=== PATIENT | female | born 1965 | race Caucasian/White ===

== ENCOUNTER 2016-08-02 08:53 | Emergency (ER) | payer OTHER ==
[~2016-08-02 08:53] MED LIST: CYCL10TA9 PO; LEVO50TA6 PO
[2016-08-02 09:04] VITALS: BP 164/97; PULSE 110; RESP 18; O2SAT 98
--- NOTE | 2016-08-02 09:06 | ED.REPORT ---
HPI-General Illness Date of Service Aug 02, 2016 ED Provider: Gisselle Acosta MD 51 year old female with a hx of hypothyroid presents to the ED via EMS due to palpitations and rapid heart rate at 0700 this morning. Her symptoms lasted for approximately 1 hour before resolving. During this time she had mild chest tightness. En route the patient was noted to be in Afib. Her ECG and rhythm strips from medics were reviewed and were in Afib with a rate of 125. Pt reports she has a hx of heart palpitations that typically resolve after a few minutes. Pt was concerned because they lasted so long today. In the last week pt had a minor URI. She has taken no medications. PCP: Kalani Bonner Nursing Notes Stated Complaint: RAPID HEARTRATE Chief Complaint: Dysrhythmia/Cardiac Nursing Notes Reviewed: Yes Allergies: Coded Allergies: Sulfa (Sulfonamide Antibiotics) (Verified Allergy, Severe, hives, 09/22/14) Scheduled Levothyroxine (Levothyroxine) 50 Mcg Tablet 50 MCG PO DAILY Scheduled PRN Cyclobenzaprine (Cyclobenzaprine) 10 Mg Tablet 10 MG PO HS PRN PRN For Spasm General Time Seen by MD: 09:03 Chief Complaint Other (Afib) Hx Obtained From: Patient, EMS Arrived By: Ambulance Sudden in Onset?: Yes Onset Occurred: 1 - 4 hours ago Symptom Duration: 1 - 4 hours Location: : Chest Quality: Painful Severity: Current: No pain currently Severity: Maximum: Mild Associated with: Reports: Chest pain Pertinent Negative: Relieved by nothing Similar Sx Previous: Yes Past Medical History Past Medical History Sleep apnea- Resolved with weight loss September 2008 heart cath with normal coronary arteries and normal left ventricular function Reports: Thyroid disease Past Surgical History Gastric bypass Reports: Appendectomy, Smoking History Former Smoker Social History Alcohol Use: "Social" Drug Use: Denies drug use Review of Systems Full Review of Systems Constitutional: Denies: Fever Respiratory: Denies: Non-productive cough, Shortness of breath Cardiovascular: Reports: Chest pain, Palpitations GI: Denies: Abdominal pain, Diarrhea, Vomiting Skin: Denies Diaphoresis, Denies Rash Neurologic: Denies: Change LOC, Headache Complete sys rev & neg: except as marked. Physical Exam Vital Signs Vital Signs Date Time Temp Pulse Resp B/P Pulse Ox O2 Delivery O2 Flow Rate FiO2 08/02/16 10:07 110 18 164/97 98 Room Air 08/02/16 09:04 110 18 164/97 98 Room Air Initial VS: Reviewed General/Constitutional: Well-developed, Well-nourished Head / Eyes: Atraumatic, Normocephalic, PERRL ENT: Conjunctiva normal, No scleral icterus Neck: Full range of motion Abdomen / GI: Soft, Non-tender, No distention Skin: Warm, Dry, No cyanosis Neurologic: Alert, Oriented, Nonfocal Psychiatric: Mood/affect normal, Behavior normal, Normal thought content Respiratory / Chest: Breath sounds NL, Breath sounds = bilat, No respiratory distress, No rales, No rhonchi, No wheezing Cardiovascular: Regular rhythm, Heart sounds NL, No murmurs, Peripheral circulation NL Heart Rate / Rhythm: Positive: Tachycardia 1+ edema on R, slightly more swollen than left. Lower Extremity / Pelvis / MS: Full range of motion, Neurologic intact, Vascular intact Varicose veins Interpretation & Diagnostics Lab Results Interpretation Result Diagram: 08/02/16 0904 08/02/16 0904 Test 08/02/16 09:04 White Blood Count 10.7th/mm3 (3.8-10.1) Red Blood Count 5.13mil/mm3 (3.90-5.20) Hemoglobin 15.1g/dL (12.0-15.6) Hematocrit 44.7% (35.0-46.0) Mean Corpuscular Volume 87.1fL (81-100) Mean Corpuscular Hemoglobin 29.4pg (27.0-35.0) Mean Corpuscular Hemoglobin Concent 33.8% (32.0-37.0) Red Cell Distribution Width 14.7% (12.3-15.4) Platelet Count 344bil/L (150-400) Neutrophils (%) (Auto) 77.6% (40-74) Lymphocytes (%) (Auto) 16.3% (14-46) Monocytes (%) (Auto) 4.5% (4-12) Eosinophils (%) (Auto) 0.6% (0-5) Basophils (%) (Auto) 0.6% (0-3) Sodium Level 145mEq/L (134-144) Potassium Level 3.5mEq/L (3.5-5.2) Chloride Level 102mEq/L (97-108) Carbon Dioxide Level 26mmol/L (18-29) Blood Urea Nitrogen 6mg/dL (6-24) Creatinine 0.48mg/dL (0.57-1.00) Estimat Glomerular Filtration Rate 194mL/min (>59) Glucose Level 115mg/dL (60-99) Calcium Level 9.3mg/dL (8.5-10.1) Magnesium Level 2.1mg/dL (1.6-2.6) Total Bilirubin 0.4mg/dL (0.0-1.2) Aspartate Amino Transf (AST/SGOT) 31U/L (0-50) Alanine Aminotransferase (ALT/SGPT) 22U/L (0-32) Alkaline Phosphatase 86U/L (25-150) Troponin T 0.010ug/L (0.0-0.011) Total Protein 8.7g/dL (6.4-8.4) Albumin 4.6g/dL (3.4-5.0) Thyroid Stimulating Hormone (TSH) 1.410uIU/mL (0.450-4.500) General Lab Results Interp 1: Labs reviewed ECG Interpretation ECG Interpretation: Sinus rhythm Slow R wave transition anteriorly Time: 09:07 Interpreted by: ED physician Normal ECG Interpretation: No acute ischemic changes Abnormal Rate: 110 Rhythm / Conduction: Tachycardia X-Ray Chest Interpretation Chest Xray Interpretation: IMPRESSION: No acute cardiopulmonary abnormality Dictated by: Yaya Azevedo M.D. on 08/02/2016 at 10:00 View: Portable, 1 view Interpretation / Wet Read by: Interpret - Radiologist Re-Eval/Medical Decision Time of Eval: 10:30 Re-Evaluation/Progress Note: Pt has remained in NSR with a rate of 88 while in the ED. Pt has no symptoms at this time. Discussed plan for discharge and follow up. All questions addressed. Counseled Regarding: Diagnosis, Lab results, Need for follow-up, When/why to return to ED Discharge & Departure Primary Impression: Paroxysmal atrial fibrillation Disposition: Home Discharge Condition All VS Reviewed: Yes Condition: Improved Patient Instructions: Atrial Fibrillation (ED) Additional Instructions: Your ECG today by the medics showed atrial fibrillation. By the time you got to the ER, you had already converted to sinus rythm. Your ER work up does not suggest any other issues, no heart attack. You did have a heart catheterization in 2008 that showed compltely normal heart arteries. Call your gastric bypass doctor to ask if you can take an enteric coated full dose 324mg aspirin daily to help decrease your risk of heart attack and stroke. A compromise would be 81mg. Call today to schedule a follow up with Kalani Bonner. Return to the ER if your symptoms last longer than an hour or for chest pain and shortness of breath. Thank you for letting us help today. Referrals: Kalani Bonner PA-C (PCP) Scribe Attestation Portions of this note were transcribed by Richelle Mahoney. I, (Gisselle Acosta MD ) personally performed the history, physical exam and medical decision-making; I reviewed and confirmed the accuracy of the information in the transcribed note. Signed by: Richelle Mahoney. 08/02/2016, 1037 copies to: Kalani Bonner PA-C, Shawna L MD Aug 02, 2016 09:06 Richelle Mahoney Aug 02, 2016 09:24
[2016-08-02 09:07] LABS: BASOPHILS % (AUTO) 0.6 % (0-3); EOSINOPHILS % (AUTO) 0.6 % (0-5); MONOCYTES % (AUTO) 4.5 % (4-12); Mean Corpuscular Hemoglobin 29.4 pg (27.0-35.0); Mean Corpuscular Volume 87.1 fL (81-100); NEUTROPHILS % (AUTO) 77.6 % (40-74); Platelet Count 344 bil/L (150-400)
[2016-08-02 09:29] LABS: TROPONIN T 0.01 ug/L (0.0-0.011)
[2016-08-02 09:50] LABS: Magnesium 2.1 mg/dL (1.6-2.6)
--- NOTE | 2016-08-02 10:02 | DRSVH ---
PROCEDURE: X-RAY CHEST ONE VIEW, PORTABLE ([id number]) INDICATIONS: new a.fib TECHNIQUE: One view of the chest was acquired. COMPARISON: 08/16/2012 FINDINGS: Surgical changes and devices: None. Lungs and pleura: No pleural effusions or pneumothorax. Lungs are clear. Mediastinum: Mediastinal contours appear normal. Eventration right hemidiaphragm. Heart size is norm al. Bones and chest wall: No suspicious bony lesions. Thoracic spondylosis. Overlying soft tissues appea r unremarkable. IMPRESSION: No acute cardiopulmonary abnormality Dictated by: Yaya Azevedo M.D. on 08/02/2016 at 10:00 Approved by: Yaya Azevedo M.D. on 08/02/2016 at 10:00
[2016-08-02 10:07] VITALS: BP 164/97; PULSE 110; RESP 18; O2SAT 98
[2016-08-02 10:52] VITALS: BP 133/86; PULSE 78; RESP 12
[2016-08-02 10:54] VITALS: BP 164/97; PULSE 110; RESP 18; O2SAT 98
== END 2016-08-02 10:54 | disposition home or self-care (01) ==
LOC: EDBD 08:53 → EDUNIT# 08:53 → SED 08:53
DX: I48.0 Paroxysmal atrial fibrillation (principal); R07.89 Other chest pain; E03.9 Hypothyroidism, unspecified; Z87.891 Personal history of nicotine dependence; Z88.1 Allergy status to other antibiotic agents

== ENCOUNTER 2017-01-08 16:55 | Emergency (ER) | payer OTHER ==
[~2017-01-08] VITALS: Ht 165.1 cm; Wt 127.0 kg
[2017-01-08 17:02] VITALS: BP 159/99; PULSE 67; RESP 20; O2SAT 96
[2017-01-08 17:34] VITALS: BP 169/65; PULSE 76; RESP 16; O2SAT 100
[2017-01-08 17:43] LABS: BASOPHILS % (AUTO) 1.1 % (0-3); MONOCYTES % (AUTO) 7.6 % (4-12); Mean Corpuscular Hemoglobin 29.8 pg (27.0-35.0); Mean Corpuscular Volume 89.6 fL (81-100); NEUTROPHILS % (AUTO) 52.8 % (40-74); Platelet Count 345 bil/L (150-400)
--- NOTE | 2017-01-08 18:10 | ED.REPORT ---
HPI-Chest Pain 40 and Over Date of Service Jan 08, 2017 ED Provider: Peter Leon MD The patient is a 51 year old female presenting today from via EMS where she was complaining of burning left side and left arm pain that began at 1330 today rated at 2/10 in intensity. She was given 324mg aspirin prior to arrival. Patient was most recently seen and evaluated at [facility] on 08/02/16 complaining of palpitations at which time she had a workup that included an unremarkable ECG, x -ray, and negative troponin. En route, medics thought she had a-fib but she was discharged in stable condition. Her most recent catheterization was in 2008 and was unremarkable. Per the patient, she experienced chest pressure and tightness yesterday and the day before when she was walking. Associated symptoms include pain in right arm radiating into jaw and SOB. She initially thought it was allergies. Last night she was up until 0230 and it was not like the a-fib she was used to. Besides the past 2 days, she has never experienced chest pain. Her kelp cutter is Dr. Bautista in [place] at [facility]. She had a recent heart ultrasound which was unremarkable. A stress test was done 2 weeks ago, she has not received the results from this yet. She denies any other symptoms including hx of heart disease, DM, and blood clots. She takes 224 mg aspirin a day. Nursing Notes Stated Complaint: LEFT ARM PAIN Chief Complaint: Chest Pain Nursing Notes Reviewed: Yes Allergies: Coded Allergies: Sulfa (Sulfonamide Antibiotics) (Verified Allergy, Severe, hives, 09/22/14) Scheduled Levothyroxine (Levothyroxine) 50 Mcg Tablet 50 MCG PO DAILY Metoprolol Tartrate (Metoprolol Tartrate) 25 Mg Tablet 12.5 MG PO BID Scheduled PRN Cyclobenzaprine (Cyclobenzaprine) 10 Mg Tablet 10 MG PO HS PRN PRN For Spasm General Time Seen by MD: 18:07 Chief Complaint Chest pain Hx Obtained From: Patient Arrived By: Ambulance Sudden in Onset?: Yes Onset Occurred: 5 - 8 hours ago Symptom Duration: Since onset Severity: Current: Mild Recent Healthcare: No recent doctor visit, No recent hospitalization Similar Sx Previous: No Past Medical History Past Medical History Sleep apnea- Resolved with weight loss September 2008 heart cath with normal coronary arteries and normal left ventricular function Reports: Thyroid disease Past Surgical History Gastric bypass Reports: Appendectomy, Smoking History Former Smoker Social History Alcohol Use: "Social" Drug Use: Denies drug use Review of Systems Constitutional: Denies: Chills, Fever Respiratory: Reports: Shortness of breath Cardiovascular: Reports: Chest pain, Palpitations GI: Denies: Abdominal pain, Diarrhea, Nausea, Vomiting Musculoskeletal: Reports: Extremity pain (right arm pain) Neurologic: Denies: Change LOC Complete sys rev & neg: except as marked. Physical Exam Initial Vital Signs Vital Signs (First) Date Time Temp Pulse Resp B/P Pulse Ox O2 Delivery O2 Flow Rate FiO2 01/08/17 17:02 36.5 67 20 159/99 96 Room Air Initial VS: Reviewed General/Constitutional: Awake, Alert, No acute distress, Cooperative, Not toxic appearing Respiratory / Chest: Atraumatic, Breath sounds NL, Breath sounds = bilat, No respiratory distress Cardiovascular: Heart rate NL, Regular rhythm, Heart sounds NL, No gallop, No murmurs, No rubs Abdomen: Atraumatic, Soft, Non-tender Lower Extremity / Pelvis / MS: Atraumatic, Inspection NL, No deformity Skin: Atraumatic, Color NL, No rash, Warm, Dry Neurologic: Oriented X3, Speech NL, No motor deficits Head / Eyes: Atraumatic, Normocephalic, PERRL, EOMI Upper Extremity / MS: Atraumatic, Inspection NL, No deformity Interpretation & Diagnostics Lab Results Interpretation Result Diagram: 01/08/17 1710 01/08/17 1751 Test 01/08/17 17:10 01/08/17 17:51 White Blood Count 7.5th/mm3 (3.8-10.1) Red Blood Count 4.80mil/mm3 (3.90-5.20) Hemoglobin 14.3g/dL (12.0-15.6) Hematocrit 43.0% (35.0-46.0) Mean Corpuscular Volume 89.6fL (81-100) Mean Corpuscular Hemoglobin 29.8pg (27.0-35.0) Mean Corpuscular Hemoglobin Concent 33.3% (32.0-37.0) Red Cell Distribution Width 14.7% (12.3-15.4) Platelet Count 345bil/L (150-400) Neutrophils (%) (Auto) 52.8% (40-74) Lymphocytes (%) (Auto) 34.2% (14-46) Monocytes (%) (Auto) 7.6% (4-12) Eosinophils (%) (Auto) 4.0% (0-5) Basophils (%) (Auto) 1.1% (0-3) Hold Purple Top Tube Received (Received) Hold Blue Top Tube Received (Received) Hold Red Top Tube Received (Received) Hold [place] Top Tube Received (Received) Sodium Level 140mEq/L (134-144) Potassium Level 3.6mEq/L (3.5-5.2) Chloride Level 101mEq/L (97-108) Carbon Dioxide Level 23mmol/L (18-29) Blood Urea Nitrogen 14mg/dL (6-24) Creatinine 0.47mg/dL (0.57-1.00) Estimat Glomerular Filtration Rate 199mL/min (>59) Glucose Level 93mg/dL (60-99) Calcium Level 9.5mg/dL (8.5-10.1) Magnesium Level 2.2mg/dL (1.6-2.6) Total Bilirubin 0.4mg/dL (0.0-1.2) Aspartate Amino Transf (AST/SGOT) 26U/L (0-50) Alanine Aminotransferase (ALT/SGPT) 21U/L (0-32) Alkaline Phosphatase 81U/L (25-150) Troponin T < 0.010ug/L (0.0-0.011) Total Protein 7.5g/dL (6.4-8.4) Albumin 4.0g/dL (3.4-5.0) Hold [place] Top Tube Received (Received) ECG Interpretation ECG Interpretation: left axis deviation normal intervals no ST segment when compared to 08/02/16 she is no longer tachy no significant changes present Time: 09:07 Interpreted by: ED physician Normal ECG Interpretation: No acute ischemic changes, Normal axis, Normal intervals X-Ray Chest Interpretation Chest Xray Interpretation: IMPRESSION: No acute cardiopulmonary disease. Dictated by: Nate Self M.D. on 01/08/2017 at 19:05 Approved by: Nate Self M.D. on 01/08/2017 at 19:05 View: Portable Interpretation / Wet Read by: Interpret - Radiologist Re-Eval/Medical Decision Med Decision/Clinical Course The patient is a 51 year old female presenting today from via EMS where she was complaining of burning left side and left arm pain that began at 1330 today rated at 2/10 in intensity. She was given 324mg aspirin prior to arrival. Patient was most recently seen and evaluated at [facility] on 08/02/16 complaining of palpitations at which time she had a workup that included an unremarkable ECG, x -ray, and negative troponin. En route, medics thought she had a-fib but she was discharged in stable condition. Her most recent catheterization was in 2008 and was unremarkable. Per the patient, she experienced chest pressure and tightness yesterday and the day before when she was walking. Associated symptoms include pain in right arm radiating into jaw and SOB. She initially thought it was allergies. Last night she was up until 0230 and it was not like the a-fib she was used to. Besides the past 2 days, she has never experienced chest pain. Her kelp cutter is Dr. Bautista in [place] at [facility]. She had a recent heart ultrasound which was unremarkable. A stress test was done 2 weeks ago, she has not received the results from this yet. She denies any other symptoms including hx of heart disease, DM, and blood clots. She takes 324 mg aspirin a day. Emergency department the patient is afebrile and in no apparent distress. She is chest pain-free. EKG was obtained and interpreted by myself as documented above. CBC unremarkable CMP unremarkable Troponin negative CHEST X-RAY IMPRESSION: No acute cardiopulmonary disease. I was able to contact the patient's cardiology group in [place]. I confirmed that her recent stress test was essentially unremarkable except for hypertensive response to exercise. Given her recent extensive workup including stress test as well as unremarkable echocardiogram it is felt that the patient is safe for discharge. Initial screening EKG and troponin today are negative and she is chest pain-free. I would expect that the setting of acute coronary syndrome that the patient would likely have developed elevated troponin at this point. The patient's kelp cutter will make sure that she is seen in the next couple of days. They have recommended that we start metoprolol 12.5 mg twice a day the patient was provided with a prescription. Patient states that she feels reassured and is comfortable with being discharged. Prior to discharge follow-up and return precautions were reviewed in detail with the patient who verbalized understanding and agreement with the plan. The patient was discharged in stable condition. Time of Eval: 19:00 Re-Evaluation/Progress Note: Pt checked. Informed of negative lab results. Plan to try to track down stress test. Time of Eval: 19:47 Re-Evaluation/Progress Note: Pt rechecked. Informed of normal stress test and plan for discharge. Pt understands and agrees with plan. Consultation : Referral / Consult Name: Melodie Hagan MD Call Returned at: 19:31 Marketing Development Representative: Agrees with eval, Agrees with plan Note: Case discussed with Ronald Vasquez. Previously normal echocardiogram. Treadmill test on , no ischemic changes, hypertensive response with normal limits. Recommends starting Metoprolol. Dr. Hagan feels patient is appropriate for discharge at the time. Counseled Regarding: Diagnosis, Lab results, Need for follow-up, When/why to return to ED Discharge & Departure Primary Impression: Chest pain Chest pain type: unspecified Qualified Code: R07.9 - Chest pain, unspecified Additional Impressions: History of atrial fibrillation Palpitations Hypertension Hypertension type: unspecified secondary hypertension Qualified Code: I15.9 - Secondary hypertension, unspecified Disposition: Home Discharge Condition All VS Reviewed: Yes Condition: Stable Additional Instructions: Thank you for seeking care at the emergency room. Our primary goal today in the ED was to evaluate you for any life-threatening conditions. Your evaluation was reassuring. You will be discharged with a prescription for metoprolol for blood pressure. Please take as directed. You should follow-up with your kelp cutter in the next couple of days. Please call them to schedule an appointment. We discussed your case in detail with your cardiology group and your recent echocardiogram and stress test are reassuring. You should return to the ED immediately if you develop recurrent chest pain/ pressure, fevers, vomiting, cough, shortness of breath, chest pain, lightheadedness, weakness or any other concerning signs or symptoms. Thank you for letting us partake in your care today. Referrals: Kalani Bonner PA-C (PCP) Scribe Attestation Portion of this note were transcribed by Catalina Montano. I, Dr. Leon, personally performed the history, physical exam, and medical decision-making: I reviewed and confirmed the accuracy for the information in the transcribed note. Signed by: minna Chirinos, 01/08/17 1300 copies to: Kalani Bonner PA-C, Beck O MD Jan 08, 2017 18:10 Catalina Montano Jan 08, 2017 18:18
[2017-01-08 18:20] VITALS: BP 154/68; PULSE 65; RESP 20; O2SAT 98
[2017-01-08 18:28] LABS: TROPONIN T < 0.010 ug/L (0.0-0.011)
[2017-01-08 18:34] LABS: Magnesium 2.2 mg/dL (1.6-2.6)
--- NOTE | 2017-01-08 19:07 | DRSVH ---
PROCEDURE: X-RAY CHEST ONE VIEW, PORTABLE ([id number]) INDICATIONS: Chest pain TECHNIQUE: One view of the chest was acquired. COMPARISON: [facility], CR, XR CHEST 1VW (PORTABLE), 08/02/2016, 9:30. FINDINGS: Surgical changes and devices: None. Lungs and pleura: No pleural effusions or pneumothorax. Lungs are clear. Mediastinum: Mediastinal contours appear normal. Heart size is normal. Bones and chest wall: No suspicious bony lesions. Overlying soft tissues appear unremarkable. IMPRESSION: No acute cardiopulmonary disease. Dictated by: Nate Self M.D. on 01/08/2017 at 19:05 Approved by: Nate Self M.D. on 01/08/2017 at 19:05
[2017-01-08] MEDS ORDERED: METO25TA6 PO (19:36)
[2017-01-08 20:03] VITALS: BP 162/91; PULSE 74; RESP 20; O2SAT 100
== END 2017-01-08 20:03 | disposition home or self-care (01) ==
LOC: SED 16:55
DX: R07.89 Other chest pain (principal); I15.9 Secondary hypertension, unspecified; R00.2 Palpitations; E07.9 Disorder of thyroid, unspecified; Z86.79 Personal history of other diseases of the circulatory system; Z95.5 Presence of coronary angioplasty implant and graft; Z87.891 Personal history of nicotine dependence; Z88.2 Allergy status to sulfonamides